=== PATIENT | female | born 1990 | race Caucasian/White ===

== ENCOUNTER → 2020-12-02 | Outpatient (CLI) | payer OTHER ==
[~2020-12-02] MED LIST: COLACE 100MG C100 MG PO; IBUPROFEN600 MG PO; LORTAB 5-325 M1 EACH PO; NORCO 5-325 TA1 EACH PO; PRENATAL TABLE1 EAC1 PO
== END ==
LOC: RAD 12:46
DX: R06.2 Wheezing (principal)
CPT/HCPCS: 71046

== ENCOUNTER → 2022-07-22 | Outpatient (CLI) | payer OTHER | LOC: MAMO 07-16 10:30 | DX: N64.52 Nipple discharge (principal) | CPT/HCPCS: 77066; G0279 ==